=== PATIENT | male | born 1965 | race Caucasian/White ===

== ENCOUNTER 2020-07-11 12:54 | Emergency (ER) | payer OTHER, SELFPAY ==
[2020-07-11 13:00] VITALS: BP 149/85; PULSE 45; RESP 20; TEMP 36.3; O2SAT 98
--- NOTE | 2020-07-11 13:30 | ED.EXTPRO ---
HPI - Extremity Problem General Chief complaint: Extremity Injury, Upper Stated complaint: Left wrist and hand pain Time Seen by Provider: 07/11/20 13:31 Source: patient and RN notes reviewed Mode of arrival: ambulatory Limitations: no limitations History of Present Illness HPI Narrative: 55-year-old male presents with concern for left hand and wrist pain for several days. Denies any known injury, trauma. Denies any previous problems with his wrist. Reports decreased procurement professional strength in the left hand. Denies decreased range of motion, sensation. Reports she has been taking Tylenol and using an Alvaro wrap with some relief. MD Complaint: extremity pain Related Data Home Medications Medication Instructions Recorded Confirmed aspirin [Adult Aspirin EC Low 81 mg PO DAILY 07/11/20 07/11/20 Strength] citalopram 40 mg PO DAILY 07/11/20 07/11/20 gabapentin 100 mg PO HS 07/11/20 07/11/20 hydralazine 10 mg PO BID 07/11/20 07/11/20 lisinopril-hydrochlorothiazide 1 tablet PO BID 07/11/20 07/11/20 omeprazole 20 mg PO DAILY 07/11/20 07/11/20 potassium chloride 10 meq PO DAILY 07/11/20 07/11/20 pravastatin 40 mg PO HS 07/11/20 07/11/20 spironolactone 25 mg PO DAILY 07/11/20 07/11/20 Allergies Allergy/AdvReac Type Severity Reaction Status Date / Time codeine AdvReac Intermediate Nausea and Verified 07/11/20 13:21 Vomiting morphine AdvReac Intermediate Nausea and Verified 07/11/20 13:21 Vomiting Review of Systems Review of Systems: Narrative: CONSTITUTIONAL: Denies malaise, chills, sweats, or fever. SKIN: Denies abrasions, lacerations, redness MUSCULOSKELETAL: Reports left wrist and hand pain with mild swelling. Denies decreased range of motion, sensation. Reports decreased procurement professional strength in left hand NEUROLOGIC: Denies numbness, weakness All systems reviewed & are unremarkable except as noted in HPI and below PMFSH Comments At time of signature, agree with nursing past medical, surgical, social and family history. There is no relevant family history pertinent to the presenting complaint Exam Narrative: Exam Narrative: GENERAL: Well-appearing, well-nourished, and in no acute distress. HEAD: Normocephalic, atraumatic. EYES: PERRLA, conjunctivae clear NECK: Supple. CHEST: Speaks in full sentences. No respiratory distress. HEART: Regular rate and rhythm. Normal and equal peripheral pulses. EXTREMITIES: Left wrist, hand, digits have has normal sensation, normal range of motion. Mildly decreased procurement professional strength. No edema or ecchymosis. 5/5 strength with wrist and digit flexion and extension. Normal sensation with sensitivity to light touch and pain. No point tenderness. No open wounds, no skin tenting, no devitalized tissue or atrophy, no trophic changes, no obvious deformity, alignment normal, nearby joints and structures intact. Distal pulses palpable and equal bilaterally, skin warm, dry, pink. Capillary refill less than 3 seconds. SKIN: Warm, dry, no rash. NEURO: Alert and oriented x3. PSYCH: Normal mood and affect Course Course Emergency Course: Patient is aware of diagnosis, understands and agrees to treatment plan. Anticipatory guidance given. Patient agrees to follow-up as directed and is aware of reasons to seek care at the emergency department. Portions of this record may have been created with voice recognition software Vital Signs Vital signs: Vital Signs Temperature 97.4 F L 07/11/20 13:00 Pulse Rate 45 L 07/11/20 13:00 Respiratory Rate 20 07/11/20 13:00 Blood Pressure 149/85 H 07/11/20 13:00 Pulse Oximetry 98 07/11/20 13:00 Temperature 97.4 F L 07/11/20 13:00 Pulse Rate 45 L 07/11/20 13:00 Respiratory Rate 20 07/11/20 13:00 Blood Pressure 149/85 H 07/11/20 13:00 Pulse Oximetry 98 07/11/20 13:00 Reviewed. MDM - Extremity (Nontraumatic) MDM Narrative Medical decision making narrative: Patients pain is consistent with musculoskeletal etiology. No signs of neurological or va
== END 2020-07-11 13:42 | disposition home or self-care (01) ==
PROVIDERS: Emergency Provider Nurse Practitioner; PCP Internal Medicine
DX: M77.8 Other enthesopathies, not elsewhere classified (principal); I10 Essential (primary) hypertension; G62.9 Polyneuropathy, unspecified
CPT/HCPCS: 99203; G0463